=== PATIENT | female | born 1950 | race Caucasian/White ===

== ENCOUNTER 2017-07-03 21:51 | Inpatient (IN) | payer MEDICARE, MEDICAID ==
--- NOTE | 2017-07-03 22:28 | ED Physician Chart ---
ED Chief Complaint/HPI - Patient Information Date Seen:: 07/03/17 Time Seen:: 22:27 Chief Complaint:: Chest pain History of Present Illness:: 66 yo female had new onset of mid chest pain early this morning, lasting for 4 minutes. The pain went away until 2 hours ago, the pain was same at mid chest but less painful. No chest pressure, no SOB today. She had SOB a few days ago. Allergies:: Allergies Allergy/AdvReac Type Severity Reaction Status Date / Time No Known Allergies Allergy Verified 07/03/17 22:07 ED Review of Systems - Review of Systems General/Constitutional: No fever, No chills Skin: No bruising Head: No headache Eyes: No pain ENT: No nasal drainage Neck: No neck pain Cardio Vascular: Chest pain Pulmonary: No SOB GI: No nausea, No vomiting Musculoskeletal: No bone or joint pain Psychiatric: No prior psych history Neurological: No focal symptoms ED Past Medical History - Past Medical History Past Medical History: DM Social History: Non Smoker, No Alcohol, No Drug Use Surgical History: None Family Medical History - Family Member Mother History Unknown: Yes Ethnicity: ED Physical Exam - Physical Examination General/Constitutional: Awake, Alert Head: Atraumatic Eyes: PERRL Skin: No ecchymosis ENMT: Nasal exam nl Neck: No nuchal rigidity Respiratory: Clear to Auscultation, No Wheeze/Rhonchi/Rales Cardio Vascular: RRR, No murmur, gallop, rubs, NL S1 S2 GI: No tenderness/rebounding/guarding Extremities: normal strength in all extremities Neuro/Psych: No focal deficits ED Labs/Radiology/EKG Results - Lab Results Results: Laboratory Results - last 24 hr 07/03/17 07/03/17 07/03/17 22:35 22:35 22:35 WBC 8.3 RBC 4.70 Hgb 14.7 Hct 43.6 MCV 92.8 MCH 31.3 H MCHC Differential 33.7 RDW 12.3 Plt Count 315 MPV 8.3 Neutrophils % 50.4 Lymphocytes % 36.5 Monocytes % 8.6 Eosinophils % 4.1 Basophils % 0.4 Sodium 137 Potassium 3.4 L Chloride 104 Carbon Dioxide 25.7 Anion Gap 10.7 BUN 15 Creatinine 0.6 Est GFR ( Amer) > 60.0 Est GFR (Non-Af Amer) > 60.0 BUN/Creatinine Ratio 25.0 Glucose 143 H Calcium 10.1 Total Bilirubin 0.4 AST 18 ALT 26 Alkaline Phosphatase 69 Creatine Kinase Troponin I B-Natriuretic Peptide 15.0 Total Protein 6.7 Albumin 4.7 Globulin 2.0 Albumin/Globulin Ratio 2.4 H Triglycerides 206 H Cholesterol 220 H LDL Cholesterol Direct 155 HDL Cholesterol 52 TSH Urine Source Urine Color Urine Clarity Urine pH Ur Specific [place] Urine Protein Urine Glucose (UA) Urine Ketones Urine Blood Urine Nitrate Urine Bilirubin Urine Urobilinogen Ur Leukocyte Esterase Urine RBC Urine WBC Ur Epithelial Cells Urine Bacteria 07/03/17 07/03/17 07/03/17 22:35 22:35 22:39 WBC RBC Hgb Hct MCV MCH MCHC Differential RDW Plt Count MPV Neutrophils % Lymphocytes % Monocytes % Eosinophils % Basophils % Sodium Potassium Chloride Carbon Dioxide Anion Gap BUN Creatinine Est GFR ( Amer) Est GFR (Non-Af Amer) BUN/Creatinine Ratio Glucose Calcium Total Bilirubin AST ALT Alkaline Phosphatase Creatine Kinase Troponin I 0.01 B-Natriuretic Peptide Total Protein Albumin Globulin Albumin/Globulin Ratio Triglycerides Cholesterol LDL Cholesterol Direct HDL Cholesterol TSH 2.54 Urine Source RANDOM Urine Color YELLOW Urine Clarity CLEAR Urine pH 6.0 Ur Specific [place] 1.010 Urine Protein NEGATIVE Urine Glucose (UA) NEGATIVE Urine Ketones NEGATIVE Urine Blood TRACE Urine Nitrate NEGATIVE Urine Bilirubin NEGATIVE Urine Urobilinogen 0.2 Ur Leukocyte Esterase MODERATE H Urine RBC 2-5 Urine WBC 2-5 Ur Epithelial Cells FEW Urine Bacteria FEW 07/04/17 07/04/17 06:55 06:55 WBC RBC Hgb Hct MCV MCH MCHC Differential RDW Plt Count MPV Neutrophils % Lymphocytes % Monocytes % Eosinophils % Basophils % Sodium Potassium Chloride Carbon Dioxide Anion Gap BUN Creatinine Est GFR ( Amer) Est GFR (Non-Af Amer) BUN/Creatinine Ratio Glucose Calcium Total Bilirubin AST ALT Alkaline Phosphatase Creatine Kinase 90 Troponin I < 0.01 L B-Natriuretic Peptide Total Protein Albumin Globulin Albumin/Globulin Ratio Triglycerides Cholesterol LDL Cholesterol Direct HDL Cholesterol TSH Urine Source Urine Color Urine Clarity Urine pH Ur Specific [place] Urine Protein Urine Glucose (UA) Urine Ketones Urine Blood Urine Nitrate Urine Bilirubin Urine Urobilinogen Ur Leukocyte Esterase Urine RBC Urine WBC Ur Epithelial Cells Urine Bacteria - Radiology Results Results: CXR: no consolidation ED Assessment - Assessment General Assessment: Chest pain to rule out ACS DM II Hyperlipidemia UTI Assessment/Comments:: CBC, CMP, UA Trop I, BNP NS 1L IV bolus Rocephin 1g IV KCl 20mEq po Admit to tele for cardiac workup ED Septic Shock - . Is Septic Shock (SBP<90, OR Lactate>4 mmol\L) present?: No ED Reassessment (Disposition) - Reassessment Reassessment Condition:: Improved - Patient Disposition Discharge/Transfer:: Acute Care w/in this hosp Admitting Medical Physician:: Quentin Upton ED Discharge Plan - Patient Disposition Admit/Discharge/Transfer: Acute Care w/in this hosp
[2017-07-03 22:53] LABS: MONOCYTE ABSOLUTE 0.7 Th/cmm (0.3-1.0); NEUTROPHILE ABSOLUTE 4.3 Th/cmm (1.8-8.0)
[2017-07-03 22:53] LABS: URINE MICROSCOPIC INDICATED? YES; URINE SOURCE RANDOM
[2017-07-03 22:57] LABS: % BASOPHILS 0.4 % (0.0-2.0); % EOSINOPHILS 4.1 % (0.0-5.0); % LYMPHOCYTES 36.5 % (20.0-50.0); % MONOCYTES 8.6 % (2.0-10.0); % NEUTROPHILS 50.4 % (40.0-80.0); EOSINOPHILE ABSOLUTE 0.3 Th/cmm (0.1-0.4); HEMATOCRIT 43.6 % (41.0-60); HEMOGLOBIN 14.7 gm/dL (12-16); MEAN CELL VOLUME 92.8 fl (81-100); MEAN CORPUSCULAR HEMOGLOBIN 31.3 pg (27.0-31.0); MEAN CORPUSCULAR HGB CONC 33.7 pg (28.0-36.0); MEAN PLATELET VOLUME 8.3 fl; PLATELET COUNT 315 Th/cmm (150-400); RED CELL DISTRIBUTION WIDTH 12.3 % (11.5-20.0); WHITE BLOOD COUNT 8.3 Th/cmm (4.8-10.8)
[2017-07-03 22:58] LABS: URINE BILIRUBIN NEGATIVE (NEGATIVE); URINE BLOOD TRACE (NEGATIVE); URINE GLUCOSE (UA) NEGATIVE (NEGATIVE); URINE KETONE NEGATIVE (NEGATIVE); URINE LEUKOCYTE ESTERASE MODERATE (NEGATIVE); URINE NITRATE NEGATIVE (NEGATIVE); URINE PROTEIN NEGATIVE (NEGATIVE); URINE UROBILINOGEN 0.2 E.U./dL (0.2 - 1.0)
[2017-07-03 23:02] LABS: URINE CLARITY CLEAR (CLEAR); URINE COLOR YELLOW
[2017-07-03 23:09] LABS: ALB/GLOB RATIO 2.4 (1.0-1.8); ALBUMIN 4.7 gm/dL (3.7-5.3); ALKALINE PHOSPHATASE 69 U/L (34-104); ANION GAP 10.7 (7.0-16.0); BILIRUBIN,TOTAL 0.4 mg/dL (0.3-1.0); BUN - UREA NITROGEN 15 mg/dL (7-25); CALCIUM SERUM 10.1 mg/dL (8.6-10.3); CARBON DIOXIDE 25.7 mEq/L (21.0-31.0); CHLORIDE 104 mEq/L (98-107); CHOLESTEROL 220 mg/dL (<200); CREATININE - SERUM 0.6 mg/dL (0.6-1.2); GFR AFRICAN-AMERICAN > 60.0 ml/min (>90); GFR NON AFRICAN-AMERICAN > 60.0 ml/min; GLUCOSE 143 mg/dL (70-105); HDL -HIGH DENSITY LIPOPROTEIN 52 mg/dL (23-92); POTASSIUM SERUM 3.4 mEq/L (3.5-5.1); SGOT 18 U/L (13-39); SGPT/ALT 26 U/L (7-52); SODIUM SERUM 137 mEq/L (136-145); TOTAL PROTEIN,SERUM 6.7 gm/dL (6.0-8.3); TRIGLYCERIDES 206 mg/dL (<150)
[2017-07-03] MEDS ORDERED: cefTRIAXone 1 GM in Sodium Chloride 0.9% 50 ML IV ONE (23:18)
[2017-07-03] MEDS ORDERED: Sodium Chloride 0.9% 1,000 ML IV ONE (23:21)
[2017-07-03 23:23] LABS: URINE BACTERIA FEW /hpf (NONE SEEN); URINE EPITHELIAL CELLS FEW /lpf (FEW)
[2017-07-03] MEDS ORDERED: Aspirin 81mg Chewable Tab PO STA (23:30)
[2017-07-03] MEDS ORDERED: Aspirin 81mg Chewable Tab ONE (23:31)
[2017-07-03] MEDS ORDERED: Potassium Chloride 20 mEq ER Tab PO ONE ×2 (23:31→23:32)
[2017-07-04] MEDS: NITROGLYCERIN OINT 2% 1 INCH PACKET TP SCH ×2 (07:00→12:08)
[2017-07-04] MEDS: INSULIN ASPART, RECOMBINANT 100 UNITS/ML SUBQ SCH ×2 (07:02→12:10)
--- NOTE | 2017-07-04 08:14 | Diagnostic Imaging Report ---
CHEST X-RAY: AP view INDICATION: pain COMPARISON: None FINDINGS: Mild chronic lung changes are seen. No focal consolidation or effusion. Heart size is normal. Degenerative changes of the spine are noted. IMPRESSION: No focal airspace consolidation identified.
[2017-07-04] MEDS ORDERED: Pneumococcal Vaccine 0.5 mL Vial IM ONE (10:00)
--- NOTE | 2017-07-04 15:20 | History & Physical ---
ADMIT DATE: 07/04/2017 CHIEF COMPLAINT: Chest pain. HISTORY OF PRESENT ILLNESS: A 66-year-old [place] female with history of hyperlipidemia, diabetes mellitus, presented to Emergency Room for evaluation of chest pain, which she described on the left side without any association with diaphoresis, nausea, palpitation, cough, shortness of breath. The patient's chest pain was localized and it was intermittent. The patient was evaluated and subsequently admitted to the hospital for further treatment. PAST MEDICAL HISTORY: Remarkable for: 1. Diabetes. 2. Hypertension. 3. Hyperlipidemia. MEDICATIONS AT HOME: Metformin and simvastatin. ALLERGIES: None. SOCIAL HISTORY: The patient lives with family. No smoking, alcohol, or drug use. FAMILY MEDICAL HISTORY: Remarkable for diabetes and hypertension. REVIEW OF SYSTEMS: The patient currently denies any headache, blurred vision, double vision, dysphagia, odynophagia, runny nose, stuffy nose, fever, chills, cough, abdominal pain, nausea, vomiting, diarrhea, dysuria, hematuria, hematochezia, melena, no seizure or syncopal episode. PHYSICAL EXAMINATION: GENERAL: Alert, awake, oriented, lying in the bed without any acute distress. VITAL SIGNS: Temperature 98.6, pulse 74, respiratory rate 18, blood pressure 130/80. HEENT: Normocephalic, atraumatic. Extraocular muscles are intact. Tongue was pink and coated. NECK: Supple, no JVD. No hepatojugular reflux. No lymphadenopathy, thyromegaly or carotid bruit. HEART: Both heart sounds are regular. No S3, no S4, no murmur. CHEST AND LUNGS: Equal in expansion, no wheezing, no crackles. ABDOMEN: Soft. No guarding, no rigidity. Liver and spleen palpable. No palpable masses. EXTREMITIES: No edema, no cyanosis. NEUROLOGIC: Nonfocal. AVAILABLE DIAGNOSTIC DATA: Has been reviewed. CLINICAL IMPRESSION: 1. Chest pain. 2. Diabetes. 3. Hyperlipidemia. PLAN: 1. Oxygen. 2. Aspirin. 3. Nitrates. 4. Cardiac enzymes. 5. Cardiology consult. 6. Medication reconciliation. 7. Diabetes management. 8. If the patient ruled out for acute MA, the patient will be discharged and have followup with primary care physician. Care plan reviewed and discussed with staff. JOB# [id number]
--- NOTE | 2017-07-04 20:39 | Consultation ---
DATE OF CONSULTATION: 07/04/2017 HISTORY AND PHYSICAL: This 66-year-old female patient came to the Emergency Room complaining of chest pain, sharp in nature, not radiating to the arm or to the neck. PAST MEDICAL HISTORY: Hypertension, diabetes. FAMILY HISTORY: Unremarkable. SOCIAL HISTORY: No history of smoking, alcohol abuse. ALLERGIES: None. PHYSICAL EXAMINATION: VITAL SIGNS: Blood pressure 138/82, pulse 70, respirations 20. HEAD: Normocephalic. No lumps or bumps. EYES: Pupils equal, reactive to light. Fundi showing nicking, sclerae white, conjunctivae pink. NECK: Carotid 2+. Normal upstroke. JVD flat. Thyroid not palpable. Lymph nodes not palpable. CHEST: Shows increased AP diameter. No kyphosis, scoliosis. LUNGS: Bilateral bronchovesicular breath sounds. HEART: PMI fifth intercostal space with lateral to midclavicular line. S1, S2. No S3, S4, soft systolic murmur. ABDOMEN: Soft. Liver, spleen not palpable. No organomegaly. Bowel sounds active. NEUROLOGIC: Unremarkable. EXTREMITIES: Peripheral pulses 2+. No pedal edema. CLINICAL IMPRESSION: Chest pain, unlikely coronary artery disease, hypertension, diabetes mellitus type 2, and hyperlipidemia. PLAN: Get EKG, echocardiogram, treadmill. Monitor the patient. JOB# [id number]
== END 2017-07-04 16:30 | disposition home or self-care (01) | DRG 206 ==
LOC: ER 21:51 → ICU 07-04 00:45
PROVIDERS: ADMIT Internal Medicine; ATTEND Internal Medicine
DX: M94.0 Chondrocostal junction syndrome [Tietze] (principal); E11.9 Type 2 diabetes mellitus without complications; N39.0 Urinary tract infection, site not specified; E78.5 Hyperlipidemia, unspecified; I10 Essential (primary) hypertension; Z79.84 Long term (current) use of oral hypoglycemic drugs
CPT/HCPCS: 36415-UA; 71045-TC; 80053-TC; 80061-TC; 81001-TC; 82550-TC; 82948-90; 83880-TC; 84443-TC; 84484-TC; 85025-TC; 90732; 93005; J0696; J1815; J7030; Z7610

== ENCOUNTER 2017-10-17 12:48 | Inpatient (IN) | payer MEDICARE, MEDICAID ==
[2017-10-17] MEDS ORDERED: Sodium Chloride 0.9% 500 ML IV ONE (12:59)
--- NOTE | 2017-10-17 13:03 | ED Physician Chart ---
ED Chief Complaint/HPI - Patient Information Date Seen:: 10/17/17 Time Seen:: 12:40 Chief Complaint:: Abdominal Pain History of Present Illness:: onset x 4 hours of intermittent, crampy, epigastric abdominal pain, N/V/D x 4; no report of trauma, H/As, S/T, cough, neck pain, C/P, SOB, A/C, fever, chills, or urinary s/s Allergies:: Allergies Allergy/AdvReac Type Severity Reaction Status Date / Time No Known Allergies Allergy Verified 07/03/17 22:07 Historian:: Patient Review:: Nurse's Note Reviewed ED Review of Systems - Review of Systems General/Constitutional: No fever, No chills, No weight loss, No weakness, No diaphoresis, No edema, No loss of appetite Skin: No skin lesions, No rash, No bruising Head: No headache, No light-headedness Eyes: No loss of vision, No pain, No diplopia ENT: No earache, No nasal drainage, No sore throat, No tinnitus Neck: No neck pain, No swelling, No thyromegaly, No stiffness, No mass noted Cardio Vascular: No chest pain, No palpitations, No PND, No orthopnea, No edema Pulmonary: No SOB, No cough, No sputum, No wheezing GI: Nausea, Vomiting, Diarrhea, Pain, No melena, No hematochezia, No constipation, No hematemesis G/U: No dysuria, No frequency, No hematuria, No nacturia Food Equipment Service Technician: No vaginal discharge, No abnormal vaginal bleed, No contraction Musculoskeletal: No bone or joint pain, No back pain, No muscle pain Endocrine: No polyuria, No polydipsia Psychiatric: No prior psych history, No depression, No anxiety, No suicidal ideation, No homicidal ideation, No auditory hallucination, No visual hallucination Hematopoietic: No bruising, No lymphadenopathy Allergic/Immuno: No urticaria, No angioedema Neurological: No syncope, No focal symptoms, No weakness, No paresthesia, No headache, No seizure, No dizziness, No confusion, No vertigo ED Past Medical History - Past Medical History Obtainable: Yes Past Medical History: HTN, DM, Dyslipidemia Family History: Diabetes Melitus, HTN Social History: Non Smoker, No Alcohol, No Drug Use, Surgical History: None Psychiatricy History: None Medication: Reviewed Family Medical History - Family Member Mother History Unknown: Yes Ethnicity: ED Physical Exam - Physical Examination General/Constitutional: Awake, Well-developed, well-nourished, Alert, No distress, GCS 15, Non-toxic appearing, Ambulatory Head: Atraumatic Eyes: Lids, conjuctiva normal, PERRL, EOMI Skin: Nl inspection, No rash, No skin lesions, No ecchymosis, Well hydrated, No lymphadenopathy ENMT: External ears, nose nl, TM canals nl, Nasal exam nl, Lips, teeth, gums nl , Oropharynx nl, Tonsils nl Neck: Nontender, Full ROM w/o pain, No JVD, No nuchal rigidity, No bruit, No mass, No stridor Respiratory: Nl effort/Exclusion, Clear to Auscultation, No Wheeze/Rhonchi/Rales Cardio Vascular: RRR, No murmur, gallop, rubs, NL S1 S2, Carotid/Femoral/Distal pulses equal bilaterally GI: No tenderness/rebounding/guarding, No organomegaly, No hernia, Normal BS's, Nondistended, No mass/bruits, No McBurney tenderness, Rectum exam nl : No CVA tenderness Extremities: No tenderness or effusion, Full ROM, normal strength in all extremities, No edema, Normal digits & nails Neuro/Psych: Alert/oriented, DTR's symmetric, Normal sensory exam, Normal motor strength, Judgement/insight normal, Mood normal, Normal gait, No focal deficits Misc: Normal back, No paraspinal tenderness ED Labs/Radiology/EKG Results - Lab Results Comments:: unremarkable - Radiology Results Comments:: NAD - EKG Interpretations EKG Time:: 13:05 Rate & Rhythm: 80; NSR Comments:: non-specific st-t changes ED Septic Shock - . Is Septic Shock (SBP<90, OR Lactate>4 mmol\L) present?: No ED Reassessment (Disposition) - Reassessment Reassessment Condition:: Improved - Diagnosis Diagnosis:: Dx: Epigastric Pain; Abdominal Pain; AGE; Gastroenteritis; N/V/D; - Aftercare/Follow up Instructions Aftercare/Follow-Up Instructions:: Counseled pt regarding lab results/diagnosis & need follow up, Counseled pt & family regarding lab results/diagnosis & need follow up - Patient Disposition Discharge/Transfer:: Acute Care w/in this hosp Accepting Physician:: Dr. Pérez Time Called:: [id number] Time Responded:: 14:20 Admitted to:: Med/Surg Spoke to:: Dr. Pérez Admitting Medical Physician:: Dr. Pérez Condition at Disposition:: Stable, Improved
[2017-10-17 13:18] LABS: % BASOPHILS 0.7 % (0.0-2.0); % EOSINOPHILS 3.1 % (0.0-5.0); % LYMPHOCYTES 37.7 % (20.0-50.0); % NEUTROPHILS 51.5 % (40.0-80.0); BASOPHILE ABSOLUTE 0.1 Th/cumm (0-0.2); EOSINOPHILE ABSOLUTE 0.2 Th/cmm (0.1-0.4); HEMATOCRIT 42.5 % (41.0-60); LYMPHOCYTE ABSOLUTE 2.8 Th/cmm (1.5-3.0); MEAN CELL VOLUME 92.1 fl (81-100); MEAN CORPUSCULAR HEMOGLOBIN 32.4 pg (27.0-31.0); MEAN CORPUSCULAR HGB CONC 35.2 pg (28.0-36.0); MEAN PLATELET VOLUME 7.9 fl; MONOCYTE ABSOLUTE 0.5 Th/cmm (0.3-1.0); NEUTROPHILE ABSOLUTE 3.7 Th/cmm (1.8-8.0); PLATELET COUNT 303 Th/cmm (150-400); RED BLOOD COUNT 4.62 Mil/cmm (3.80-5.20); RED CELL DISTRIBUTION WIDTH 12.3 % (11.5-20.0); WHITE BLOOD COUNT 7.3 Th/cmm (4.8-10.8)
[2017-10-17 13:45] LABS: ALB/GLOB RATIO 2.1 (1.0-1.8); ALBUMIN 4.8 gm/dL (3.7-5.3); ALKALINE PHOSPHATASE 69 U/L (34-104); ANION GAP 14.4 (7.0-16.0); BILIRUBIN,TOTAL 0.4 mg/dL (0.3-1.0); BUN - UREA NITROGEN 10 mg/dL (7-25); CALCIUM SERUM 9.2 mg/dL (8.6-10.3); CARBON DIOXIDE 22.1 mEq/L (21.0-31.0); CHLORIDE 104 mEq/L (98-107); CHOLESTEROL 191 mg/dL (<200); CREATININE - SERUM 0.5 mg/dL (0.6-1.2); CREATININE KINASE 94 U/L (30-223); GFR AFRICAN-AMERICAN > 60.0 ml/min (>90); GFR NON AFRICAN-AMERICAN > 60.0 ml/min; GLUCOSE 165 mg/dL (70-105); HDL -HIGH DENSITY LIPOPROTEIN 53 mg/dL (23-92); POTASSIUM SERUM 3.5 mEq/L (3.5-5.1); SGOT 23 U/L (13-39); SGPT/ALT 32 U/L (7-52); SODIUM SERUM 137 mEq/L (136-145); TOTAL PROTEIN,SERUM 7.1 gm/dL (6.0-8.3); TRIGLYCERIDES 195 mg/dL (<150)
[2017-10-17 13:46] LABS: AMYLASE SERUM 26 U/L (29-103); LIPASE 17 U/L (11-82)
[2017-10-17 13:58] LABS: INR 1.14 (0.5-1.4)
[2017-10-17 14:16] LABS: URINE MICROSCOPIC INDICATED? YES; URINE SOURCE RANDOM
[2017-10-17 14:20] LABS: URINE BILIRUBIN NEGATIVE (NEGATIVE); URINE BLOOD TRACE (NEGATIVE); URINE GLUCOSE (UA) 100 mg/dL (NEGATIVE); URINE KETONE NEGATIVE (NEGATIVE); URINE LEUKOCYTE ESTERASE TRACE (NEGATIVE); URINE NITRATE NEGATIVE (NEGATIVE); URINE PROTEIN NEGATIVE (NEGATIVE); URINE UROBILINOGEN 0.2 E.U./dL (0.2 - 1.0)
[2017-10-17 14:43] LABS: URINE CLARITY CLEAR (CLEAR); URINE COLOR YELLOW
[2017-10-17 14:44] LABS: URINE BACTERIA NONE SEEN /hpf (NONE SEEN); URINE EPITHELIAL CELLS OCCASIONAL /lpf (FEW); URINE RBC 0-2 /hpf (0-5); URINE WBC 0-2 /hpf (0-5)
[2017-10-17] MEDS ORDERED: Sodium Chloride 0.9% 1,000 ML IV SCH (20:00)
[2017-10-17] MEDS: INSULIN ASPART SLIDING SCALE 100 UNITS/ML UNIT SUBQ SCH (21:09)
--- NOTE | 2017-10-18 00:32 | History & Physical ---
ADMIT DATE: 10/17/2017 HISTORY OF PRESENT ILLNESS: The patient came to the Emergency Room complaining of intermittent abdominal pain, nausea and vomiting x 4. The patient had no trauma, no chest pain, no neck pain, no other problem. The patient had no fever, no chills. The patient ____ historian and nurse's notes were reviewed. REVIEW OF SYSTEMS: Otherwise, negative. PAST MEDICAL HISTORY: Hypertension, diabetes, and hyperlipidemia. PHYSICAL EXAMINATION: GENERAL: Awake, alert, well-developed female patient. VITAL SIGNS: Stable. HEAD: Normal. ENT: Normal. NECK: Supple. ABDOMEN: Epigastric tenderness. CENTRAL NERVOUS SYSTEM: Grossly normal. LABORATORY AND DIAGNOSTIC DATA: EKG was normal. Laboratory data was noted and is in normal sinus rhythm. DIAGNOSES: Epigastric and abdominal pain and gastroenteritis. PLAN: The patient is being admitted and I will go ahead and start him on IV Protonix and her GI doctor see the patient tomorrow and I will follow along with you. JOB# [id number]
[2017-10-18 06:32] LABS: % BASOPHILS 0.3 % (0.0-2.0); % EOSINOPHILS 3.5 % (0.0-5.0); % LYMPHOCYTES 36.1 % (20.0-50.0); % MONOCYTES 8.3 % (2.0-10.0); % NEUTROPHILS 51.8 % (40.0-80.0); EOSINOPHILE ABSOLUTE 0.3 Th/cmm (0.1-0.4); HEMATOCRIT 39.6 % (41.0-60); HEMOGLOBIN 13.5 gm/dL (12-16); LYMPHOCYTE ABSOLUTE 2.7 Th/cmm (1.5-3.0); MEAN CELL VOLUME 92.6 fl (81-100); MEAN CORPUSCULAR HEMOGLOBIN 31.6 pg (27.0-31.0); MEAN CORPUSCULAR HGB CONC 34.1 pg (28.0-36.0); MEAN PLATELET VOLUME 8.4 fl; MONOCYTE ABSOLUTE 0.6 Th/cmm (0.3-1.0); NEUTROPHILE ABSOLUTE 3.9 Th/cmm (1.8-8.0); PLATELET COUNT 299 Th/cmm (150-400); RED BLOOD COUNT 4.28 Mil/cmm (3.80-5.20); RED CELL DISTRIBUTION WIDTH 12.4 % (11.5-20.0); WHITE BLOOD COUNT 7.5 Th/cmm (4.8-10.8)
[2017-10-18 06:45] LABS: ANION GAP 11.4 (7.0-16.0); BUN - UREA NITROGEN 10 mg/dL (7-25); CALCIUM SERUM 8.7 mg/dL (8.6-10.3); CARBON DIOXIDE 22.5 mEq/L (21.0-31.0); CHLORIDE 109 mEq/L (98-107); CHOLESTEROL 160 mg/dL (<200); CREATININE - SERUM 0.5 mg/dL (0.6-1.2); GFR AFRICAN-AMERICAN > 60.0 ml/min (>90); GFR NON AFRICAN-AMERICAN > 60.0 ml/min; GLUCOSE 155 mg/dL (70-105); HDL -HIGH DENSITY LIPOPROTEIN 44 mg/dL (23-92); POTASSIUM SERUM 3.9 mEq/L (3.5-5.1); SODIUM SERUM 139 mEq/L (136-145); TRIGLYCERIDES 144 mg/dL (<150)
[2017-10-18] MEDS: INSULIN ASPART SLIDING SCALE 100 UNITS/ML UNIT SUBQ SCH (08:00)
--- NOTE | 2017-10-18 08:05 | General Progress Note ---
Subjective - Review of Systems Events since last encounter: patient with abdominal pain nausea Objective - Results Result Diagrams: 10/18/17 05:25 10/18/17 05:25 Recent Labs: Laboratory Last Values WBC 7.5 Th/cmm (4.8-10.8) 10/18/17 05:25 RBC 4.28 Mil/cmm (3.80-5.20) 10/18/17 05:25 Hgb 13.5 gm/dL (12-16) 10/18/17 05:25 Hct 39.6 % (41.0-60) L 10/18/17 05:25 MCV 92.6 fl (81-100) 10/18/17 05:25 MCH 31.6 pg (27.0-31.0) H 10/18/17 05:25 MCHC Differential 34.1 pg (28.0-36.0) 10/18/17 05:25 RDW 12.4 % (11.5-20.0) 10/18/17 05:25 Plt Count 299 Th/cmm (150-400) 10/18/17 05:25 MPV 8.4 fl 10/18/17 05:25 Neutrophils % 51.8 % (40.0-80.0) 10/18/17 05:25 Lymphocytes % 36.1 % (20.0-50.0) 10/18/17 05:25 Monocytes % 8.3 % (2.0-10.0) 10/18/17 05:25 Eosinophils % 3.5 % (0.0-5.0) 10/18/17 05:25 Basophils % 0.3 % (0.0-2.0) 10/18/17 05:25 PT 12.0 SECONDS (9.5-11.5) H 10/17/17 13:10 INR 1.14 (0.5-1.4) 10/17/17 13:10 Sodium 139 mEq/L (136-145) 10/18/17 05:25 Potassium 3.9 mEq/L (3.5-5.1) 10/18/17 05:25 Chloride 109 mEq/L (98-107) H 10/18/17 05:25 Carbon Dioxide 22.5 mEq/L (21.0-31.0) 10/18/17 05:25 Anion Gap 11.4 (7.0-16.0) 10/18/17 05:25 BUN 10 mg/dL (7-25) 10/18/17 05:25 Creatinine 0.5 mg/dL (0.6-1.2) L 10/18/17 05:25 Est GFR ( Amer) > 60.0 ml/min (>90) 10/18/17 05:25 Est GFR (Non-Af Amer) > 60.0 ml/min 10/18/17 05:25 BUN/Creatinine Ratio 20.0 10/18/17 05:25 Glucose 155 mg/dL (70-105) H 10/18/17 05:25 POC Glucose 167 MG/DL (70 - 105) H 10/18/17 06:16 Calcium 8.7 mg/dL (8.6-10.3) 10/18/17 05:25 Total Bilirubin 0.4 mg/dL (0.3-1.0) 10/17/17 13:10 AST 23 U/L (13-39) 10/17/17 13:10 ALT 32 U/L (7-52) 10/17/17 13:10 Alkaline Phosphatase 69 U/L (34-104) 10/17/17 13:10 Creatine Kinase 94 U/L (30-223) 10/17/17 13:10 Troponin I 0.01 ng/mL (0.01-0.05) 10/17/17 13:10 B-Natriuretic Peptide 34.5 pg/mL (5.0-100.0) 10/17/17 13:10 Total Protein 7.1 gm/dL (6.0-8.3) 10/17/17 13:10 Albumin 4.8 gm/dL (3.7-5.3) 10/17/17 13:10 Globulin 2.3 gm/dL 10/17/17 13:10 Albumin/Globulin Ratio 2.1 (1.0-1.8) H 10/17/17 13:10 Triglycerides 144 mg/dL (<150) 10/18/17 05:25 Cholesterol 160 mg/dL (<200) 10/18/17 05:25 LDL Cholesterol Direct 99 mg/dL (75-193) 10/18/17 05:25 HDL Cholesterol 44 mg/dL (23-92) 10/18/17 05:25 Amylase 21 U/L (29-103) L 10/18/17 05:25 Lipase 17 U/L (11-82) 10/17/17 13:10 TSH 1.14 uIU/ml (0.34-5.60) 10/18/17 05:25 Urine Source RANDOM 10/17/17 13:02 Urine Color YELLOW 10/17/17 13:02 Urine Clarity CLEAR (CLEAR) 10/17/17 13:02 Urine pH 6.0 (4.6 - 8.0) 10/17/17 13:02 Ur Specific [place] 1.015 (1.005-1.030) 10/17/17 13:02 Urine Protein NEGATIVE mg/dL (NEGATIVE) 10/17/17 13:02 Urine Glucose (UA) 100 mg/dL (NEGATIVE) H 10/17/17 13:02 Urine Ketones NEGATIVE mg/dL (NEGATIVE) 10/17/17 13:02 Urine Blood TRACE (NEGATIVE) 10/17/17 13:02 Urine Nitrate NEGATIVE (NEGATIVE) 10/17/17 13:02 Urine Bilirubin NEGATIVE (NEGATIVE) 10/17/17 13:02 Urine Urobilinogen 0.2 E.U./dL (0.2 - 1.0) 10/17/17 13:02 Ur Leukocyte Esterase TRACE (NEGATIVE) H 10/17/17 13:02 Urine RBC 0-2 /hpf (0-5) 10/17/17 13:02 Urine WBC 0-2 /hpf (0-5) 10/17/17 13:02 Ur Epithelial Cells OCCASIONAL /lpf (FEW) 10/17/17 13:02 Urine Bacteria NONE SEEN /hpf (NONE SEEN) 10/17/17 13:02 - Physical Exam Vitals and I&O: Vital Signs Temp 96.0 F 10/18/17 07:54 Pulse 70 10/18/17 07:54 Resp 18 10/18/17 07:54 BP 113/51 10/18/17 07:54 Pulse Ox 98 10/18/17 07:54 Intake & Output 10/17/17 10/18/17 10/18/17 18:59 06:59 18:59 Weight (lbs) 74.843 kg 74.843 kg Other: Weight Source Patient stated Patient stated Active Medications: Current Medications Carvedilol (Coreg) 3.125 mg PO BID [facility] Stop: 12/16/17 16:59 Last Admin: 10/17/17 17:25 Dose: 3.125 mg Sodium Chloride (Nacl 0.9%) 1,000 mls @ 100 mls/hr IV .Q10H [facility] Stop: 12/16/17 19:59 Last Admin: 10/17/17 19:28 Dose: 100 mls/hr Insulin Aspart (Novolog Insulin Sliding Scale) 0 units SUBQ ACHS [facility]; Protocol Stop: 12/16/17 20:59 Last Admin: 10/17/17 21:09 Dose: Not Given Metformin HCl (Glucophage) 1,000 mg PO BID [facility] Stop: 12/16/17 16:59 Last Admin: 10/17/17 16:55 Dose: 1,000 mg Ondansetron HCl (Zofran) 4 mg IVP Q6H PRN PRN Reason: Nausea / Vomiting Stop: 12/16/17 17:54 Pantoprazole Sodium (Protonix) 40 mg IVP QDAC [facility] Stop: 12/17/17 07:29 Simvastatin (Zocor) 10 mg PO HS [facility]; Protocol Stop: 12/16/17 20:59 Last Admin: 10/17/17 21:08 Dose: 10 mg - Procedures Procedures: Procedures Procedure Code Date INJECT/INFUSE NEC 99.29 02/08/11 Assessment/Plan - Problem List Patient Problems: All Active Problems EPIGASTRIC PAIN WITH N/V (Acute)
--- NOTE | 2017-10-18 09:10 | Diagnostic Imaging Report ---
KUB abdominal film [employer] portable) HISTORY: Vomiting There is a nonspecific gas pattern of nondilated bowel. Stool noted within nondilated large bowel. No free intraperitoneal air. Degenerative changes noted throughout the spine. IMPRESSION: 1. Stool-filled nondilated large bowel with an otherwise nonspecific appearance.
--- NOTE | 2017-10-18 19:45 | Consultation ---
DATE OF CONSULTATION: 10/17/2017 REASON FOR CONSULTATION: Vomiting. HISTORY OF PRESENT ILLNESS: This consult was obtained through the request of Dr. Pérez for this 66-year-old with history of obesity, diabetes, hypertension, hyperlipidemia, who presented to the hospital with abdominal pain accompanied by vomiting. The patient had persistent vomiting for 4 hours with abdominal pain and cramps. She came to the ER and was admitted. Now she feels a little bit better. The patient denies having any fever. No hematemesis, melena, or hematochezia. PAST MEDICAL HISTORY: Hypertension, hyperlipidemia, and diabetes. PAST SURGICAL HISTORY: Negative. SOCIAL HISTORY: Denies smoking, alcohol, or drugs. FAMILY HISTORY: Noncontributory. ALLERGIES: No known drug allergies. MEDICATIONS: The patient is on Coreg, Glucophage, Zofran, Protonix, Zocor. REVIEW OF SYSTEMS: No weight loss. She has abdominal discomfort, but not really pain. PHYSICAL EXAMINATION: GENERAL: The patient is awake, oriented to self, place, and time, in no acute distress. VITAL SIGNS: Blood pressure is 104/69, heart rate 72, respiratory rate 18, temperature is 96.8. HEAD AND NECK: Pupils reactive to light. Extraocular muscles intact. Sclerae are anicteric. Conjunctivae not pale. Oral cavity, no lesion. NECK: Supple. CHEST: Good air entry. LUNGS: Clear to auscultation. CARDIOVASCULAR SYSTEM: Regular rate and rhythm. No murmur or gallop. ABDOMEN: Soft, positive bowel sounds, not tender. EXTREMITIES: Lower extremities, no edema. CENTRAL NERVOUS SYSTEM: Grossly nonfocal. LABORATORY DATA: Unremarkable. IMPRESSION: A 66-year-old presented with abdominal pain, nausea, vomiting, now is better. ASSESSMENT AND PLAN: Abdominal pain, nausea, vomiting, could be gastroenteritis. At this time, clinically the patient is better, so we will advance diet as tolerated. We will recheck labs if needed. If patient is improving no need for workup, but if things are worse then consider endoscopy later on. Meanwhile, continue with PPI. Recheck labs in the morning and check a KUB. Other medical problem such as diabetes, hypertension, hyperlipidemia as per Dr. Pérez. Thank you, Dr. Pérez, for allowing me to participate in the care of the patient. If you have any further questions, please let me know. [facility]# [id number]
--- NOTE | 2017-10-19 00:08 | History & Physical ---
ADMIT DATE: 10/18/2017 AGE: 66. SEX: Female. PHYSICIAN: Dr. Pérez. CLEANER AND TRIMMER: Dr. Manning. TYPE OF THE REPORT: Psychiatric consult. REASON FOR THE CONSULT: Depression. HISTORY OF PRESENT ILLNESS: The patient is a 66-year-old female who was admitted to the hospital because of increased abdominal and epigastric pain with nausea and vomiting. The patient also has been depressed and has been complaining of increased pain. The patient also has been feeling hopeless and helpless. Dr. Pérez has evaluated the patient. The patient currently seems to be sedated and hardly answered any questions. She does not seem to be in pain, but at the same time, it seemed that she has been sedated. The patient has no history of suicide or homicide. PAST PSYCHIATRIC HISTORY: The patient has no history of psychiatric treatment. PAST MEDICAL HISTORY: The patient has hypertension, dyslipidemia and diabetes mellitus. SOCIAL HISTORY: The patient lives in a fci. No known alcohol or drug use. ALLERGIES: No known allergies. MENTAL STATUS EXAM: The patient appears his stated age. Flat affect. Anxious. Depressed mood. Thought processes are circumstantial, but no flight of ideas. The patient did not answer question regarding hallucinations or delusions or regarding suicide or homicide, but seems to be agitated and needs redirections. ASSESSMENT: Unspecified psychosis. Rule out schizoaffective disorder. TREATMENT PLAN: We will continue monitoring her behavior and her condition closely. Also, we will continue monitoring psychotropic medications. We will continue to follow up for further recommendations. Thanks to Dr. Pérez and will follow up with you. JOB# [id number]
== END 2017-10-18 11:30 | disposition left against medical advice (07) | DRG 392 ==
LOC: ER 12:48 → MSI 15:10
PROVIDERS: ADMIT Internal Medicine; ATTEND Internal Medicine
DX: K52.9 Noninfective gastroenteritis and colitis, unspecified (principal); I10 Essential (primary) hypertension; E11.9 Type 2 diabetes mellitus without complications; E78.5 Hyperlipidemia, unspecified; F25.9 Schizoaffective disorder, unspecified; Z53.21 Procedure and treatment not carried out due to patient leaving prior to being seen by health care provider; F29 Unspecified psychosis not due to a substance or known physiological condition; F32.9 Major depressive disorder, single episode, unspecified; E66.9 Obesity, unspecified; Z68.29 Body mass index [BMI] 29.0-29.9, adult
CPT/HCPCS: 36415-UA; 74000-TC; 80048-TC; 80053-TC; 80061-TC; 81001-TC; 82150-TC; 82550-TC; 82948-90; 83690-TC; 83880-TC; 84443-TC; 84484-TC; 85025-TC; 85610-TC; 93005; 94760; 96374; J1815; J2405; J7030; J7040; Z7610